=== PATIENT | female | born 1970 | race Caucasian/White ===

== ENCOUNTER → 2024-01-30 | Outpatient (CLI) | payer BC ==
--- NOTE | 2024-01-30 12:45 | US ---
EXAMINATION TYPE: US thyroid st tissue head/neck DATE OF EXAM: 01/30/2024 COMPARISON: NONE CLINICAL INDICATION: Female, 54 years old with history of R22.1 LOCALIZED SWELLING, MASS; Palpable mi dline neck, inferior to chin TECHNIQUE: FINDINGS: scanned area of concern, midline neck, inferior to chin, isoechoic lesion = 1.8 x 1.3 x 2. 0cm IMPRESSION: 1. Isoechoic nodule palpable region may be an enlarged lymph node.
== END | disposition home or self-care (01) ==
LOC: RADUSWWP 12:14
PROVIDERS: ATTEND Otolaryngology
DX: E04.1 Nontoxic single thyroid nodule (principal); R22.0 Localized swelling, mass and lump, head
CPT/HCPCS: 76536